=== PATIENT | female | born 1965 | race Caucasian/White ===

== ENCOUNTER 2024-01-19 13:15 | Outpatient (CLI) | payer BC, SELFPAY ==
--- NOTE | 2024-01-19 13:24 | MM_ITS ---
WS: [id number] BILATERAL SCREENING DIGITAL TOMOSYNTHESIS MAMMOGRAM WITH CAD HISTORY: SCREENING COMPARISON: 01/13/2023, 01/01/2022, 11/17/2020 Bilateral CC and MLO views with tomosynthesis and synthetic mammography submitted. Computer aided det ection analyzed. Breast composition: The breasts are heterogeneously dense, which may obscure small masses. No suspici ous masses, microcalcifications or architectural distortion. Asymmetric soft tissue in the LEFT breas t at the prior lumpectomy site. Reviewing prior studies there is probably been no interval change. Th ere is distortion of the tissues which appears similar to prior exams. There are benign calcification s within the LEFT breast. MM/[place] [id number] IMPRESSION: BI-RADS: 2 - Benign FOLLOW UP: 1 Year Follow-up
== END 2024-01-19 13:16 | disposition home or self-care (01) ==
LOC: RAD 13:18
PROVIDERS: Family Provider Family Medicine Hospice and Palliative Medicine; PCP Nurse Practitioner Family; Visit Provider Nurse Practitioner Family
DX: Z12.31 Encounter for screening mammogram for malignant neoplasm of breast (principal); R92.333 Mammographic heterogeneous density, bilateral breasts; N64.89 Other specified disorders of breast; R92.1 Mammographic calcification found on diagnostic imaging of breast
CPT/HCPCS: 77063; 77067

== ENCOUNTER → 2024-09-06 15:09 | Outpatient (BNVA) | payer BC, SELFPAY | PROVIDERS: Family Provider Family Medicine Hospice and Palliative Medicine; PCP Nurse Practitioner Family; Visit Provider Internal Medicine Cardiovascular Disease | DX: R07.9 Chest pain, unspecified (principal) | CPT/HCPCS: 93005 ==

== ENCOUNTER 2024-09-27 09:36 | Outpatient (CLI) | payer BC, SELFPAY ==
[2024-09-27 09:42] VITALS: BMI 29.5
--- NOTE | 2024-09-27 09:43 | NMCV_ITS ---
NM khang perf SPECT r/s* [id number] Laverne Herrera Age: 59 Gender: F : 1965 Exam Date: 09/27/2024 10:26 Ordering Phys: Coco KrishnanP HEEL BREASTER Technologist: SAKINA Soto Exam Location: [facility] Indications: cp STRESS TEST Please see separate stress test report in [facility] for full findings IMAGE PROTOCOL Rest/Stress 1 Radiopharmaceutical Dose (mCi) Administration Site Administered by Rest: Tc-99m 11 IV Cassandra Cowart, SOFTWARE APPLICATIONS ENGINEER Sestamibi Stress:Tc-99m 32.7 IV Cassandra Cowart, SOFTWARE APPLICATIONS ENGINEER Sestamibi Rest: 27-Sep-2024 60 Discovery 630 Stress: 27-Sep-2024 30 Discovery 630 Images obtained in supine and prone position. Radiopharmaceutical was injected at 88 % maximum heart rate. SPECT RESULTS Technical Quality: Good Raw Data Analysis: Normal Image Corrections: No attenuation or motion correction applied Summed Stress Score: 0 Summed Rest Score: 2 Summed Difference Score: 0 PERFUSION FINDINGS Fairly uniform myocardial tracer uptake with no significant or Perfusion abnormalities. Some attenuation artifacts were noted around the apex. FUNCTIONAL RESULTS (calculated via Gated SPECT) Stress Image LV EF (%): 77 Stress EDV (mL):64 TID: 0.94 Stress ESV (mL):15 FUNCTIONAL FINDINGS: Segmental wall motion analysis revealing no gross wall motion abnormalities IMPRESSIONS 1. Myocardial perfusion imaging revealing fairly uniform myocardial tracer uptake with no significant perfusion abnormalities 2. Normal LV ejection fraction of 77%. 3. LV wall motion analysis revealing no gross wall motion abnormalities. 4. Normal LV volume Low probability for coronary ischemia, based on the above findings No similar previous studies are available for comparison Dr Ines Jaramillo MD [facility] (Electronically Signed) Final Date: 28 Sep 2024 08:28 S
--- NOTE | 2024-09-27 09:43 | ECG_ITS ---
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 Interpretive Statements Lung unchanged pre/post procedure; Intraprocedure shortess of breath PROCEDURE: At the baseline, the patient's blood pressure was 162/59 with a heart rate of 67. The baseline electrocardiogram showed normal sinus rhythm with normal ST-Ts.. The patient exercised for 6 minutes and 18 seconds on a standard Jovani protocol. Patient attained a maximum heart rate of 153 beats per minute(95% of the maximum predicted heart rate) with a blood pressure at the peak exercise of 181/47 mm Hg. The EKG at the peak exercise revealed no significant changes. Patient did not have any chest pain or any significant cardiac arrhythmias with the exercise During the recovery phase, there were no new changes. Blood pressure at the end of the recovery phase was 146/68 mm Hg with a heart rate of 112 per minute. CONCLUSION: 1. No significant EKG changes with the treadmill exercise 2. No exercise-induced chest pain or cardiac arrhythmia 3. Slightly impaired exercise tolerance, attained a maximum of 10.2 METs Electronically Signed On 10-01-2024 11:36:46 CDT by Ines Jaramillo M.D. [email or web address]
[2024-09-27 11:27] VITALS: BP 146/68; PULSE 96
--- NOTE | 2024-09-27 14:15 | USCV_ITS ---
Laverne Herrera Age: 59 Gender: F : 1965 Exam Date: 09/27/2024 10:13 Ordering Phys: Ines Jaramillo MD ([email or web address]) Technologist: JUAN Exam Location: [facility] [place] Indication: CP, SoB BP: 142 / 82 HR: 65 Rhythm: Sinus Technical Quality: Adequate MEASUREMENTS (Male / Female) Normal Values 2D ECHO LV Diastolic Diameter PLAX 4.9 cm 4.2 - 5.9 / 3.9 - 5.3 cm IVS Diastolic Thickness 0.9 cm 0.6 - 1.0 / 0.6 - 0.9 cm IVS Systolic Thickness 1.2 cm LVPW Diastolic Thickness 0.5 cm 0.6 - 1.0 / 0.6 - 0.9 cm LVPW Systolic Thickness 1.3 cm LVOT Diameter 1.9 cm LV Ejection Fraction 2D Teich 65.9 % LV Ejection Fraction MOD 4C 64.1 % LV Ejection Fraction MOD 2C 55.9 % LV Ejection Fraction 2C AL 59.0 % LA Diameter 2.5 cm RA Systolic Volume 4C AL 37.3 ml RA Systolic Volume 4C MOD 36.0 ml LA Sys Volume AL 57.6 cm cubed LA Sys Volume Index AL 30.3 cm cubed/m squared Aorta at Sinotubular Diameter 2.5 cm M-MODE LA Ao Ratio MM 1.3 AV Cusp Separation MM 1.4 cm DOPPLER AV Peak Velocity 88.0 cm/s LVOT Peak Velocity 68.0 cm/s AV Area Cont Eq vti 2.0 cm squared AV Area Cont Eq pk 2.1 cm squared MV Peak Velocity 99.0 cm/s MV Area PHT 4.3 cm squared Mitral E to A Ratio 0.9 TV Peak Velocity 180.5 cm/s TR Peak Velocity 218.0 cm/s TR Peak Gradient 19.0 mmHg TV Peak E Velocity 72.0 cm/s PV Peak Velocity 85.0 cm/s FINDINGS Left Ventricle Normal left ventricular size and systolic function, EF 56%. No regional wall motion abnormalities. Grade I/IV diastolic dysfunction (abnormal relaxation filling pattern), normal to mildly elevated filling pressures. Right Ventricle The right ventricle is normal in size and function. Right Atrium The right atrium is normal in size. Left Atrium The left atrium is normal in size. Mitral Valve Trace mitral valve regurgitation. Aortic Valve Structurally normal trileaflet aortic valve. Tricuspid Valve Trace tricuspid valve regurgitation. Pulmonic Valve Structurally normal pulmonic valve. Pericardium Normal pericardium without effusion. Aorta Normal ascending aorta dimension. IVC Inferior vena cava not visualized. CONCLUSIONS Normal left ventricular size and systolic function, EF 56%. No regional wall motion abnormalities. Grade I/IV diastolic dysfunction (abnormal relaxation filling pattern), normal to mildly elevated filling pressures. Normal cardiac chamber sizes. Trace of mitral and tricuspid regurgitation There is no pericardial effusion. There are no intracardiac masses. No similar previous studies are available for comparison Dr Ines Jaramillo MD [facility] (Electronically Signed) Final Date: 01 Oct 2024 09:13 S
== END 2024-09-27 09:37 | disposition home or self-care (01) ==
PROVIDERS: PCP Nurse Practitioner Family; Visit Provider Internal Medicine Cardiovascular Disease
DX: R06.09 Other forms of dyspnea (principal); R93.1 Abnormal findings on diagnostic imaging of heart and coronary circulation
CPT/HCPCS: 36415; 78452; 93017; 93306; 96374; A9500

== ENCOUNTER 2025-01-23 12:43 | Outpatient (CLI) | payer BC, SELFPAY ==
--- NOTE | 2025-01-23 12:48 | MM_ITS ---
WS: [id number] BILATERAL 3D TOMOSYNTHESIS DIGITAL SCREENING MAMMOGRAPHY WITH CAD CLINICAL INFORMATION: SCREENING HISTORY: Screening mammogram. No current complaints. COMPARISON: 2023 TECHNIQUE: Bilateral CC and MLO views. FINDINGS: The breasts are composed of heterogeneous fibroglandular density tissue, which can limit the detection of small underlying mass lesions. New ovoid nodular density upper outer LEFT breast. Recommend further evaluation with LEFT breast diagnostic mammography and ultrasound. Unremarkable RIGHT breast. MM/MM [facility] tomosynthesis [id number] IMPRESSION: DENSITY: The breasts are heterogeneously dense, which may obscure small masses. BI-RADS: 0 - Incomplete: Need additional imaging evaluation. FOLLOW UP: Need Additional Imaging Recommend LEFT breast diagnostic mammography and ultrasound.
== END 2025-01-23 12:44 | disposition home or self-care (01) ==
LOC: RAD 12:44
PROVIDERS: PCP Nurse Practitioner Family; Visit Provider Nurse Practitioner Family
DX: Z12.31 Encounter for screening mammogram for malignant neoplasm of breast (principal); R92.323 Mammographic fibroglandular density, bilateral breasts; N63.21 Unspecified lump in the left breast, upper outer quadrant; R92.8 Other abnormal and inconclusive findings on diagnostic imaging of breast
CPT/HCPCS: 77063; 77067

== ENCOUNTER 2025-02-14 14:12 | Outpatient (CLI) | payer BC, SELFPAY ==
--- NOTE | 2025-02-14 14:35 | MM_ITS ---
WS: [id number] LEFT 3D TOMOSYNTHESIS DIGITAL MAMMOGRAPHY WITH CAD CLINICAL INFORMATION: ABNORMAL MAMMO HISTORY: Additional views COMPARISON: 01/23/2025 TECHNIQUE: 3 views of the left breast were obtained. FINDINGS: The left breast is composed of heterogeneous fibroglandular density tissue, which can limit the detection of small underlying mass lesions. Dense nodular/spiculated tissue upper outer LEFT breast. This partially compresses on spot compression views. Ultrasound described below. ULTRASOUND BREAST LEFT TECHNIQUE: Ultrasound left breast focused area of concern. CLINICAL INFORMATION: ABNORMAL MAMMO FINDINGS: Ultrasound upper outer LEFT breast. Dense underlying parenchymal tissue. Incidental simple cyst with through transmission measuring 1.3 x 1.3 x 0.8 cm LEFT breast 2 o'clock position 3 cm from the nipple. No suspicious findings. No lesions to target for biopsy. Findings are benign[id number] IMPRESSION: DENSITY: The breasts are heterogeneously dense, which may obscure small masses. BI-RADS: 2 - Benign FOLLOW UP: 1 Year Follow-up Recommend return to annual screening mammography.
== END 2025-02-14 14:13 | disposition home or self-care (01) ==
PROVIDERS: PCP Nurse Practitioner Family; Visit Provider Nurse Practitioner Family
DX: R92.8 Other abnormal and inconclusive findings on diagnostic imaging of breast (principal)
CPT/HCPCS: 76642; 77061; G0279